=== PATIENT | male | born 1985 | race African-American/Black ===

== ENCOUNTER 2018-12-20 00:32 | Emergency (ER) | payer SELFPAY ==
[~2018-12-20] VITALS: Ht 203.2 cm; Wt 109.1 kg
[~2018-12-20 00:32] MED LIST: NO MEDS
[2018-12-20 02:09] VITALS: BP 136/80
[2018-12-20] MEDS ORDERED: IBUPROFEN 600 MG TABLET PO ONE (02:15)
== END 2018-12-20 02:21 | disposition home or self-care (01) ==
LOC: EMS 00:34
DX: S83.91XA Sprain of unspecified site of right knee, initial encounter (principal); X50.0XXA Overexertion from strenuous movement or load, initial encounter; Y93.01 Activity, walking, marching and hiking; Y92.410 Unspecified street and highway as the place of occurrence of the external cause; Y99.0 Civilian activity done for income or pay
CPT/HCPCS: 29505; 29530